=== PATIENT | female | born 1955 | race Caucasian/White ===

== ENCOUNTER → 2020-09-19 | Outpatient (CLI) | payer MEDICARE, OTHER ==
[~2020-09-19] MED LIST: ALDACTONE25 MG PO; AUGMENTIN 875-1 EACH PO; CALCIUM + VITA1 EACH PO; CORGARD 40MG TA40 MG PO; FERROUS SULFAT325 M2 PO; GLUCOPHAGE500 MG PO; JARDIANCE25 MG PO; LASIX20 MG PO; MICONAZOLE 7100 MG VG; MICONAZOLE 745 GM VG; MIDODRINE HCL5 MG PO; NEURONTIN600 MG PO; NORCO 5-325 TA1 EACH PO; PANTOPRAZOLE SO40 MG PO; PHENERGAN 25 MG25 M1 PO; POTASSIUM CHLO10 MEQ PO; PREDNISONE5 MG PO; PROAIR HFA8.5 GM INH; PROTONIX40 MG PO; SINGULAIR10 MG PO; VITAMIN C100 MG PO; ZOCOR20 MG PO; ZOFRAN 4 MG TAB4 MG PO; ZYVOX600 MG PO
[2020-09-19 12:19] LABS: BUN/CREATININE RATIO 18 (0-10)
== END ==
LOC: LAB 11:02
PROVIDERS: Internal Medicine Gastroenterology
DX: K75.4 Autoimmune hepatitis (principal); K74.60 Unspecified cirrhosis of liver
CPT/HCPCS: 36415; 80053

== ENCOUNTER → 2020-10-19 | Outpatient (CLI) | payer MEDICARE, OTHER | LOC: CT 09:02 | DX: D61.818 Other pancytopenia (principal); D64.9 Anemia, unspecified; C16.0 Malignant neoplasm of cardia; C79.9 Secondary malignant neoplasm of unspecified site; J98.6 Disorders of diaphragm; K74.60 Unspecified cirrhosis of liver; R16.1 Splenomegaly, not elsewhere classified; I83.90 Asymptomatic varicose veins of unspecified lower extremity | CPT/HCPCS: Q9967 ==

== ENCOUNTER → 2020-11-15 | Outpatient (CLI) | payer MEDICARE, OTHER ==
[2020-11-15 11:12] LABS: BUN/CREATININE RATIO 12 (0-10)
== END ==
LOC: LAB 09:56
PROVIDERS: Internal Medicine Gastroenterology
DX: K75.4 Autoimmune hepatitis (principal); K74.60 Unspecified cirrhosis of liver
CPT/HCPCS: 36415; 80053

== ENCOUNTER → 2021-03-16 | Outpatient (CLI) | payer MEDICARE, OTHER ==
[2021-03-16 13:44] LABS: HEMOGLOBIN 14.3 gm/dl (12.3-15.3); RED BLOOD COUNT 4.36 M/UL (4.00-5.10); WHITE BLOOD COUNT 3.4 K/UL (4.5-11.0)
[2021-03-16 14:03] LABS: BUN/CREATININE RATIO 17 (0-10)
== END ==
LOC: CT 13:00
PROVIDERS: Internal Medicine Hematology & Oncology
DX: D61.818 Other pancytopenia (principal); D64.9 Anemia, unspecified; C18.0 Malignant neoplasm of cecum; C79.9 Secondary malignant neoplasm of unspecified site; K74.60 Unspecified cirrhosis of liver; R16.1 Splenomegaly, not elsewhere classified
CPT/HCPCS: 36415; 80053; 85027; Q9967

== ENCOUNTER 2021-07-05 17:37 | Inpatient (IN) | payer MEDICARE, OTHER ==
[~2021-07-05] VITALS: Ht 175.3 cm; Wt 76.5 kg
[2021-07-05 19:10] LABS: HEMOGLOBIN 14.6 gm/dl (12.3-15.3); RED BLOOD COUNT 4.7 M/UL (4.00-5.10); WHITE BLOOD COUNT 5.2 K/UL (4.5-11.0)
[2021-07-05 19:44] LABS: BUN/CREATININE RATIO 16 (0-10)
[2021-07-05] MEDS ORDERED: JARDIANCE25 MG PO (21:22)
[2021-07-05] MEDS ORDERED: GLUCOTROL5 MG PO (21:22)
[2021-07-05] MEDS ORDERED: PROPRANOLOL HCL10 MG PO (21:23)
[2021-07-06 07:30] LABS: RED BLOOD COUNT 4.73 M/UL (4.00-5.10)
[2021-07-06 08:02] LABS: BUN/CREATININE RATIO 18 (0-10)
[2021-07-06 16:31] LABS: HEMOGLOBIN 13.5 gm/dl (12.3-15.3)
[2021-07-06 16:32] LABS: RED BLOOD COUNT 4.25 M/UL (4.00-5.10); WHITE BLOOD COUNT 11.2 K/UL (4.5-11.0)
[2021-07-06 16:55] LABS: BUN/CREATININE RATIO 21 (0-10)
[2021-07-07 07:13] LABS: HEMOGLOBIN 11.3 gm/dl (12.3-15.3); RED BLOOD COUNT 3.64 M/UL (4.00-5.10); WHITE BLOOD COUNT 5.4 K/UL (4.5-11.0)
[2021-07-07 08:46] LABS: BUN/CREATININE RATIO 39 (0-10)
--- NOTE | 2021-07-07 10:27 | NUR ---
PATIENT ROOM AIR SAT IS 98% AFTER AMBULATION
[2021-07-07] MEDS ORDERED: HYDROCODON-ACE1 EAC2 PO (14:47)
== END 2021-07-07 10:28 | disposition home health service (06) | DRG 522 ==
LOC: ER1 17:37 → CDU 20:49 → M/S 20:49
PROVIDERS: Orthopaedic Surgery; Physician Assistant; ADMIT Internal Medicine
PROC: 30233N1 Transfusion of Nonautologous Red Blood Cells into Peripheral Vein, Percutaneous Approach (ICD-10-PCS; 2021-07-06)
PROC: 0SRS0JZ Replacement of Left Hip Joint, Femoral Surface with Synthetic Substitute, Open Approach (ICD-10-PCS; principal; 2021-07-06 15:15)
DX: S72.012A Unspecified intracapsular fracture of left femur, initial encounter for closed fracture (principal); D62 Acute posthemorrhagic anemia; W18.30XA Fall on same level, unspecified, initial encounter; K74.60 Unspecified cirrhosis of liver; Z20.822 Contact with and (suspected) exposure to COVID-19; K75.4 Autoimmune hepatitis; I10 Essential (primary) hypertension; K21.9 Gastro-esophageal reflux disease without esophagitis; J44.9 Chronic obstructive pulmonary disease, unspecified; E11.40 Type 2 diabetes mellitus with diabetic neuropathy, unspecified; D69.6 Thrombocytopenia, unspecified; E78.5 Hyperlipidemia, unspecified; Y93.89 Activity, other specified; Y92.89 Other specified places as the place of occurrence of the external cause; Y99.8 Other external cause status; Z85.038 Personal history of other malignant neoplasm of large intestine; Z90.49 Acquired absence of other specified parts of digestive tract; Z88.8 Allergy status to other drugs, medicaments and biological substances; Z99.81 Dependence on supplemental oxygen
CPT/HCPCS: 36415; 70450; 71045; 72170; 73080; 73502; 73552; 73562; 80048; 80053; 81001; 82550; 82553; 82962; 83735; 83874; 84484; 85025; 85027; 86850; 86900; 86901; 93005; 96374; 96375; 97116-GP-CQ; 97161; 97166; 97530-GP-CQ; 99285; C1776; J0171; J0690; J1100; J1650; J2001; J2270; J2370; J2405; J2704; J2710; J2795; J3010; J7030; J7120; P9035; P9037; U0002

== ENCOUNTER → 2021-09-25 | Outpatient (CLI) | payer MEDICARE, OTHER ==
[~2021-09-25] MED LIST changes: +GLUCOTROL5 MG PO; +HYDROCODON-ACE1 EAC2 PO; +PROPRANOLOL HCL10 MG PO
[2021-09-25 13:33] LABS: HEMOGLOBIN 13.8 gm/dl (12.3-15.3); RED BLOOD COUNT 4.66 M/UL (4.00-5.10); WHITE BLOOD COUNT 3.3 K/UL (4.5-11.0)
[2021-09-25 13:55] LABS: BUN/CREATININE RATIO 19 (0-10)
== END ==
LOC: CT 10:00
PROVIDERS: Internal Medicine Hematology & Oncology
DX: C18.0 Malignant neoplasm of cecum (principal); C79.9 Secondary malignant neoplasm of unspecified site; D61.818 Other pancytopenia; D64.9 Anemia, unspecified; K76.0 Fatty (change of) liver, not elsewhere classified; R16.1 Splenomegaly, not elsewhere classified
CPT/HCPCS: 36415; 80053; 82378; 85027; Q9967

== ENCOUNTER → 2022-01-09 | Outpatient (CLI) | payer MEDICARE, OTHER | LOC: CT 11:40 | DX: C18.9 Malignant neoplasm of colon, unspecified (principal); D64.9 Anemia, unspecified; C18.0 Malignant neoplasm of cecum; C79.9 Secondary malignant neoplasm of unspecified site; R16.1 Splenomegaly, not elsewhere classified; K76.6 Portal hypertension ==